=== PATIENT | male | born 1975 | race Caucasian/White ===

== ENCOUNTER 2016-10-30 01:20 | Emergency (ER) | payer MEDICAID ==
[~2016-10-30] VITALS: Ht 177.8 cm; Wt 91.6 kg
--- NOTE | 2016-10-30 01:33 | Emergency Room Report ---
History of Present Illness Time Seen by MD Paiz Presenting Problem in Triage Pt arrived:Walked Presenting Problem:C/O PAIN TO LEFT KNEE X 1 MONTH. REPORT INJURY WHILE PLAYING WITH CHILDREN REPORTS PAIN WORSE IN PAST 2 DAYS Onset of symptoms date/time:09/30/16/ or onset unknown for:MEDICAL HX UNKNOWN Treatment Prior to Arrival: [employer] Provided by:SELF Sepsis Risk Assessment: Temp: 98.6 B/P: 140/99 MAP: 112 Pulse: 111 Resp: 18 Recent fever? N Clinical Suspician of Infection? N Mental Status: 1 - Regular (Normal Baseline) Sepsis Risk:Low Sepsis Risk Have you (or family members/close friends) recently traveled outside the [place]? N If Yes, where/when: Have you had exposure to infectious disease within the past month? N TB? Other? Specify: Source patient, RN notes reviewed, family, old records Exam Limitations no limitations Comment injured lt knee with poping sd with swelling and persistant pain and dec wt bearing and use Cardiac Chest Pain Chest pain indicative of cardiac No Timing/Duration this evening Severity moderate ALLERGIES Coded Allergies: No Known Allergies (08/16/16) Home Medications Reported Medications No Known Home Medications History Medical History General CAD? No Angina: No [place]: No Hypertension? No Hyperlipidemia? No CHF? No DVT? No PE? No COPD? No Asthma? No Anemia? No GERD? No Gastric ulcers? No GI Bleed? No Hernia? No Thyroid Problems? No Hypothyroidism? No CVA? No Seizures? No Diabetes? No Renal Insuffiency? No End Stage Renal Disease? No UTI? No Stones? No BPH? No GB Disease: No Nephritic Syndrome? No Asplenia? No Hepatitis? Yes Sickle Cell Disease? No Arthritis? No Migraines? No Cataracts? No Glaucoma? No MRSA? No HIV? No TB? No Anxiety? No Depression? No Cancer? No More? No Immunization Hx DT/Tetanus Unknown Flu NEVER Pneumonia NEVER Surgical Hx Previous Surgery?Y R HAND Family History Family Hx Diabetes No CAD Yes Hypertension No Hyperlipidemia No Cancer No TB No Social History Smoking Hx Smoker: Current Every Day Smoker Tobacco: Yes Type Cigarettes Packs/day < 1 Pack Alcohol Alcohol: No Drugs none Review of Systems All Other Systems Reviewed and Negative Constitutional denies fever Eyes denies drainage ENT denies: ear discharge. Respiratory denies cough, denies shortness of breath, denies wheezing Cardiovascular denies chest pain, denies palpitations, denies syncope Gastrointestinal denies abdominal pain, denies diarrhea, denies vomiting Genitourinary denies: dysuria, frequency, hesitancy, hematuria. Musculoskeletal see HPI, denies back pain, joint pain, denies joint swelling, denies neck pain Skin denies rash Psychiatric/Neurological denies headache, denies seizure Physical Exam Vital Signs Vital Signs Date Time Temp Pulse Resp B/P Pulse O2 O2 Flow FiO2 Ox Delivery Rate 10/30 0125 98.6 111 18 140/99 94 - WBC >12,000 or <4,000 or 10% bands? 2 or more SIRS Criteria Met? B/P:140/99 MAP:112 Creatinine >2.0? UA output<0.5ml/kg/hr for 2 hrs? Platelet count >100,000? Lactate >2.0mmol/1? INR >1.2 or PTT > than 60 sec? Evidence of Organ Dysfunction? Provider documented clinical suspician of infection? N Sepsis Criteria Count: 1 Sepsis Risk: Low Sepsis Risk General Appearance no apparent distress Eye Exam - bilateral eye PERRL, bilateral eye EOMI Ear, Nose, Throat normal ENT inspection Neck supple Respiratory Status No: respiratory distress. Cardiovascular regular rate/rhythm Peripheral Pulses Pulses normal Yes Extremities no calf tenderness, lt knee with effusion and dec rom with kallie and drawer ok but has meniscal tenderness Strength 4 Upper Ext (L), 4 Upper Ext (R), 4 Lower Ext (L), 4 Lower Ext (R) Neurologic alert, finishing machine operator automatic II-XII nml as tested, no motor/sensory deficits Reflexes Reflexes normal No Mental status normal mood/affect Skin intact Medical Decision Making LABS/Meds/Orders Pt receiving controlled substance in ED? No Results/Orders Orders Procedure Date/time Status STABILIZE JOINT 10/30 2306 Active KNEE-3 VIEWS-LT 10/30 0131 Active XRAY/CT/US XRAY/CT/US XRAY knee XR interpretation by reviewed by me Xray Results no fracture seen, abnormal Departure Departure Time of Disposition 0153 Disposition DC Home or Self Care(routine) Clinical Impression Primary Impression: Internal knee problem Qualifiers: Laterality: left Qualified Code: M23.92 - Unspecified internal derangement of left knee Condition STABLE Referrals Phi MERRITT,Omid Patient Instructions DI for Knee Effusion Additional Instructions see ortho arias for eval Discharge Counseling Counseled pt/family regarding diagnosis, test results, medications/RX, follow up needs Prescriptions Current Visit Scripts Prednisone (Prednisone 20MG) 20 MG PO BID #12 TAB ED Critical Care Critical Care No at 0201
[2016-10-30 02:33] VITALS: BP 140/99
--- NOTE | 2016-10-30 05:51 | RADIOLOGY REPORT PS360 ---
KNEE-3 VIEWS-LT HISTORY: Left knee pain C/O PAIN TO LEFT KNEE, REPORT INJURY X 1 MONTH AGO ORDERING PHYSICIAN: Alberto Chavez MD PATIENT AGE: 41 years COMPARISON: None FINDINGS: No fracture or dislocation. No lytic or blastic change. Normal mineralization. There is very slight decrease in the joint space medially with minimal osteophyte formation medially and at the patellofemoral joint. There may be a small suprapatellar effusion. IMPRESSION: Minimal osteoarthritic change with suprapatellar effusion
== END 2016-10-30 02:34 | disposition home or self-care (01) ==
LOC: ER 01:20
DX: M23.92 Unspecified internal derangement of left knee (principal); F17.210 Nicotine dependence, cigarettes, uncomplicated